=== PATIENT | female | born 2000 | race Two or more races ===

== ENCOUNTER 2024-09-23 23:13 | Emergency (ER) | payer MEDICAID, SELFPAY ==
[2024-09-23 23:25] VITALS: BP 137/89; PULSE 69; RESP 18; TEMP 36.9; O2SAT 99
--- NOTE | 2024-09-23 23:51 | PD.EDFMALE ---
ED Female Urogenital RME/HPI General Chief complaint: Abdominal Pain Stated complaint: LEFT LOWER ABD PAIN Time Seen by Provider: 09/23/24 23:49 Arrival date/time: 09/23/24 23:13 23F with no significant PMH presents to ED with 1 day of L pelvic pain. Patient denies fall/trauma, vaginal bleeding, dysuria/hematuria, N/V, diarrhea, discharge, rash, and concern for STD as patient is a virgin. Limitations: no limitations Related Data Previous Rx's ?Medication ?Instructions ?Recorded naproxen 500 mg tablet 500 mg PO BID PRN pain #30 tabs 09/24/24 Allergies Allergy/AdvReac Type Severity Reaction Status Date / Time No Known Allergies Allergy Verified 09/23/24 23:23 Review of Systems Review of Systems Systems Reviewed: All systems reviewed, normal except as documented Constitutional Constitutional: Reports system reviewed and no additional complaints, except as documented, Denies fever(s) and Denies headache(s) ENT Ears, Nose, Mouth, and Throat: Denies disequilibrium and Denies headache(s) Cardiovascular Cardiovascular: Reports system reviewed and no additional complaints, except as documented, Denies chest pain and Denies dyspnea Respiratory Respiratory: Reports system reviewed and no additional complaints, except as documented, Denies cough and Denies dyspnea Gastrointestinal Gastrointestinal: Reports system reviewed and no additional complaints, except as documented, Denies abdominal pain, Denies nausea and Denies vomiting Genitourinary Genitourinary: Reports as per HPI and Reports pelvic pain Neurologic Neurologic: Reports system reviewed and no additional complaints, except as documented, Denies confusion, Denies disequilibrium and Denies headache(s) Psychiatric Psychiatric: Denies confusion Past Medical History Social History SMOKING STATUS: Never smoker ED Exam General Limitations: Present no limitations General appearance: Present alert and in no apparent distress Head Head exam: Present atraumatic Eye Eye exam: Present normal appearance, PERRL and EOMI ENT ENT exam: Present normal exam, normal oropharynx and mucous membranes moist Neck Neck exam: Present normal inspection, full ROM and trachea midline Chest Chest inspection: Present normal inspection and symmetric chest wall rise Respiratory Respiratory exam: Present normal lung sounds bilaterally Cardiovascular Cardiovascular exam: Present regular rate, normal rhythm and normal heart sounds Abdominal Exam Abdominal exam: Present soft and normal bowel sounds Extremities Exam Extremities exam: Present normal inspection and full ROM Back Exam Back exam: Present normal inspection and full ROM Neurological Exam Neurological exam: Present alert, oriented X3 and CN II-XII intact Psychiatric Psychiatric exam: Present normal affect and normal mood Skin Skin exam: Present warm, dry, intact and normal color Course Quality Measures none Orders Category Date Time Status US pelvic complete Stat Exams 09/24/24 00:00 Taken Drug Screen,Urine Stat Lab 09/24/24 00:03 Completed HCG Qualitative,Urine Stat Lab 09/24/24 00:03 Completed Urinalysis, C/S if Indicated Stat Lab 09/24/24 00:03 Completed Naproxen [Naprosyn] Med 09/24/24 03:22 Discontinued 500 mg PO X1 ONE Vital Signs Vital signs: Vital Signs Temperature 98.5 F 09/23/24 23:25 Pulse Rate 69 09/23/24 23:25 Respiratory Rate 18 09/23/24 23:25 Blood Pressure 137/89 H 09/23/24 23:25 Pulse Oximetry (%) 99 09/23/24 23:25 Oxygen Delivery Method Room Air 09/23/24 23:25 O2 at 99% on RA and WNLs Urogenital - Female MDM Narrative MDM Narrative:: 23F with no significant PMH presents to ED with 1 day of L pelvic pain. Patient denies fall/trauma, vaginal bleeding, dysuria/hematuria, N/V, diarrhea, discharge, rash, and concern for STD as patient is a virgin. Physical exam reveals no ab/pelvic tenderness. Patient is afebrile, calm, and alert. US reveals L ovarian cyst, which is likely responsible for symptoms. Radiologist states possible /ectopic/miscarriage but patient confirms she's a virgin. Meds and supervisor counseling and guidance given. Patient data External records reviewed:: None Clinical information provided by:: patient Social determinants that could affect healthcare access:: none Patient has the following chronic illnesses:: none How is presenting disease/condition affected by chronic disease/condition?: no chronic disease Evaluation data The following diagnostics were reviewed and interpreted by me:: lab results and radiology exam(s) Lab and/or radiology exams considered but not ordered:: ordered Interpretation Summary: above Medications / Prescriptions Medications or Prescriptions considered but not ordered:: not ordered Medication administrations:: Medication Administration History Discontinued Medications Naproxen (Naproxen 250 Mg Tablet) 500 mg PO X1 ONE Stop: 09/24/24 03:23 n/a Consultations Consultation(s) initiated? (list below): No Diagnosis Urogenital Female Differential Diagnosis: urinary tract infection, bacterial vaginosis, trichomoniasis, cervicitis, ovarian cyst, vaginitis, ruptured ovarian cyst, cyst of Bartholin's gland, cystitis, dysmenorrhea and other (torsion, pelvic pain) Most likely diagnosis given after review of the tests above:: ovarian cyst Admission Indicated Admission indicated?: not indicated Admission Request Was there a request for admission?: No Disposition Plan Disposition Plan: Discharge Discharge Attestation Discharge Attestation: The patient and all family members were given an opportunity to ask questions and understood the discharge instructions. Discharge instructions specifically effects, indications for sooner follow up or return to the emergency department, and the expected course of current diagnosis. Patient condition: Stable Discharge Plan Plan Patient Disposition: HOME (Self Care) Disposition Comment: Stable Prescriptions/Referrals Prescriptions/Med Rec: New naproxen 500 mg tablet 500 mg PO BID PRN (Reason: pain) Qty: 30 0RF Referrals: No Primary/Family,Physician [Primary Care Provider] - In 1 week Problem List Clinical Impression: Ovarian cyst Patient/Caregiver Discharge Instructions Education Materials: ED Ovarian Cyst Additional Instructions: Please follow-up with PCP/OBGYN within 24-48 hours and return immediately if symptoms worsen. Print Language: Russian Stand Alone Forms: Patient Portal Info Letter ZELDA/ARELIS Supervising Physician ZELDA/ARELIS Supervising Physician: Dr. Langley
--- NOTE | 2024-09-24 | XR_ITS ---
Examination: Pelvic ultrasound, transabdominal, complete Technique: Transabdominal ultrasound of the pelvis performed using grayscale imaging Date and time of exam: September 24, 2024 0108 hrs. Indications: Onset left-sided pelvic pain today Findings: Uterus 6.3 cm endometrial stripe 0.9 cm No uterine mass or intrauterine gestation Right ovary 3.0 cm arterial flow small follicles Left ovary 2.5 cm arterial flow 13 mm follicle no fluid in the cul-de-sac Impression: Negative examination
[2024-09-24 00:56] LABS: Collection Type, Urine Clean Catch
[2024-09-24 01:09] LABS: Bilirubin,Urine Negative (Negative); Blood,Urine Negative (Negative); Clarity,Urine Clear (Clear/Hazy); Color,Urine Lt-Yellow (Lt Yel-Yel); Culture Indicated,Urine Not Indicated; Glucose, Urine Negative (Negative); Ketones,Urine Negative (Negative); Leukocyte Esterase,Urine Positive (Negative); Nitrite,Urine Negative (Negative); Protein,Urine Negative (Neg - Trace); RBC,Urine 2 /hpf (0-3); Squamous Epithelial Cell,Urine 3 /hpf (0-5); Urobilinogen,Urine Negative mg/dL (0.0-1.0); WBC,Urine 6 /hpf (0-5)
[2024-09-24 01:16] LABS: Amphetamine/Methamp Scrn,U Negative (Negative); Barbiturate Screen,Urine Negative (Negative); Benzodiazepines Screen,Urine Negative (Negative); Benzoylecgonine Screen, Ur Negative (Negative); Fentanyl Screen,Urine Negative (Negative); Opiate Screen,Urine Negative (Negative); THC Screen,Urine Negative (Negative)
[2024-09-24 01:18] LABS: HCG Qualitative,Urine Negative
--- NOTE | 2024-09-24 03:04 | PRELIM_ITS ---
Pelvic ultrasound (transabdominal. September 24, 2024 at 0108 hours Clinical history: Left pelvic pain. Technique: Real-time ultrasound was performed using Duplex scanning including arterial inflow, venous outflow, color and spectral Doppler analysis of both ovaries. Findings: The evaluation is limited due to overlying bowel gas. The uterus is anteverted, measuring 6.3 x 3.5 x 4.1 cm. The endometrium measures 0.9 cm. No intrauterine gestational sac is seen at this time. The right ovary measures 3 x 2.2 x 2.8 cm and demonstrates multiple follicles. The left ovary measures 2.5 x 1.2 x 2.3 cm and demonstrates a cyst/follicle measuring 1.3 x 1.1 x 1 cm. Both ovaries demonstrate normal color flow signal on Doppler evaluation. No adnexal mass is demonstrated. There is no free fluid. Impression: No evidence of intrauterine gestation at this time. Possibilities include very early intrauterine , recent or occult ectopic gestation. Recommend correlation with serum beta hCG and sonographic follow up. Other findings as described above. Report Electronically Signed By: Erick More 09/24/2024 3:03:41 AM [EST]
[2024-09-24] MEDS: NAPROXEN 250 MG TABLET 500 MG PO (03:27)
[2024-09-24 03:28] VITALS: RESP 18
== END 2024-09-24 03:30 | disposition home or self-care (01) ==
PROVIDERS: Physician Assistant; Emergency Provider Emergency Medicine
DX: N83.01 Follicular cyst of right ovary (principal)
CPT/HCPCS: 76856; 80307; 81001; 81025; 99284; A9270